=== PATIENT | male | born 1995 | race Caucasian/White ===

== ENCOUNTER 2020-04-29 00:13 | Emergency (ER) | payer MEDICAID ==
[~2020-04-29] VITALS: Ht 182.9 cm; Wt 114.0 kg
[2020-04-29] MEDS ORDERED: SODIUM CHLORIDE 0.9% 1,000 ML IV ONE (00:45)
[2020-04-29] MEDS ORDERED: CEFAZOLIN 1000MG PREMIX 50 ML IV ONE (00:45)
[2020-04-29] MEDS ORDERED: TETANUS, DIPHTHERIA, PERTUSSIS VAC/PF 0.5ML (>7YR OLD) IM ONE (00:45)
[2020-04-29 00:55] LABS: BASOPHILS % 0.4 % (0.0-2.0); EOSINOPHILS % 1.4 % (0.0-5.0); HEMATOCRIT. 43.8 % (42.0-52.0); HEMOGLOBIN. 14.9 g/dL (14.0-18.0); MEAN CORPUSCULAR HEMOGLOBIN 29.2 pg (28.0-32.0); MEAN CORPUSCULAR VOLUME 85.9 fL (80.0-94.0); MEAN PLATELET VOLUME 9.1 fl (7.4-10.4); MONOCYTES % 10.8 % (2.0-8.0); NEUTROPHILS % 61.4 % (40.0-76.0); PLATELET 220 x1000/uL (130-400); RED CELL DISTRIBUTION WIDTH 13.1 % (11.6-14.6)
[2020-04-29 01:02] LABS: CHLORIDE 109 mEq/L (98-107)
[2020-04-29 01:03] VITALS: BP 126/88
[2020-04-29 01:13] LABS: PARTIAL THROMBOPLASTIN TIME 27.9 sec (23.4-31.0); PROTHROMBIN TIME 10.6 sec (9.6-11.0)
[2020-04-29] MEDS ORDERED: IOHEXOL-350 100 ML BOTTLE ONE (01:59)
[2020-04-29 02:38] LABS: CLARITY URINE CLOUDY (CLEAR); COLOR URINE YELLOW (YELLOW); KETONES URINE NEGATIVE (NEGATIVE); LEUKOCYTE ESTERASE URINE NEGATIVE (NEGATIVE); NITRITE URINE NEGATIVE (NEGATIVE); OCCULT BLOOD URINE NEGATIVE (NEGATIVE); PH URINE 7.5 (4.5-8.0); PROTEIN URINE NEGATIVE (NEGATIVE); SPECIFIC GRAVITY URINE 1.026 (1.005-1.030)
== END 2020-04-29 04:09 | disposition home or self-care (01) ==
LOC: ER 00:13
DX: S51.812A Laceration without foreign body of left forearm, initial encounter (principal); X99.1XXA Assault by knife, initial encounter; Y93.89 Activity, other specified; Y92.488 Other paved roadways as the place of occurrence of the external cause
CPT/HCPCS: 12002; 36415; 73206; 80053; 81003; 83690; 85025; 85610; 85730; 86850; 86870; 86900; 86901; 90471; 90715; 93005; 96361; 96365; 99285; J0690; J7030; Q9967

== ENCOUNTER 2021-01-21 17:58 | Emergency (ER) | payer SELFPAY ==
[~2021-01-21] VITALS: Ht 177.8 cm; Wt 113.0 kg
[2021-01-21] MEDS ORDERED: IBUPROFEN 600MG TABLET PO ONE (19:15)
[2021-01-21] MEDS ORDERED: IBUP-2028 MT (20:52)
[2021-01-21 21:25] VITALS: BP 135/72
== END 2021-01-21 21:41 | disposition home or self-care (01) ==
LOC: ER 18:20
DX: M54.5 Low back pain (principal); M25.512 Pain in left shoulder; M25.562 Pain in left knee; V49.59XA Passenger injured in collision with other motor vehicles in traffic accident, initial encounter; Y93.89 Activity, other specified; Y92.89 Other specified places as the place of occurrence of the external cause; Y99.8 Other external cause status
CPT/HCPCS: 72070; 72100; 73030; 73560; 99284